=== PATIENT | female | born 2000 ===

== ENCOUNTER 2020-12-17 16:33 | Emergency (ER) | payer OTHER ==
[2020-12-17 18:54] VITALS: BP 124/78
--- NOTE | 2020-12-17 21:08 | Emergency Department Report ---
ED General Adult HPI - General Chief complaint: Pain General Stated complaint: BREAST PAINS PUI?: No Source: patient Mode of arrival: Ambulatory Limitations: No Limitations - History of Present Illness Initial comments: Patient is a A0 20-year-old female with no past medical history who presents to the ED with acute onset persistent left breast pain for the last 1 week. Patient states that she is currently breast-feeding her baby and that the pain has been intermittent and worse especially with palpation of left breast or when she makes any movement. Patient states that in the last 2 days, she has not been able to sleep because of worsening pain. Patient denies dizziness, syncope, nausea and vomiting, shortness of breath, chest pain, palpitations, fever and chills, abdominal pain, traumatic injury, fall, heavy lifting or neck pain, sore throat and headache. MD Complaint: left breast pain, lactating -: Sudden, week(s) (1) Location: chest (left breast) Radiation: non-radiation Severity scale (0 -10): 7 Quality: aching, sharp Consistency: intermittent Improves with: none Worsens with: movement Associated Symptoms: denies other symptoms. denies: confusion, chest pain, cough, diaphoresis, fever/chills, headaches, loss of appetite, malaise, nausea/vomiting, rash, seizure, shortness of breath, syncope, weakness Treatments Prior to Arrival: none - Related Data Previous Rx's Medication Instructions Recorded Last Taken Type Ibuprofen [Motrin] 800 mg PO Q8HR PRN #30 tablet 12/17/20 Unknown Rx cephALEXin [Keflex] 500 mg PO Q8HR #30 cap 12/17/20 Unknown Rx Allergies Allergy/AdvReac Type Severity Reaction Status Date / Time No Known Allergies Allergy Unverified 12/17/20 18:50 ED Review of Systems ROS: Stated complaint: BREAST PAINS Other details as noted in HPI Constitutional: denies: chills, fever Eyes: denies: eye pain, eye discharge, vision change ENT: denies: ear pain, throat pain Respiratory: denies: cough, shortness of breath, wheezing Cardiovascular: other (Left breast pain). denies: chest pain, palpitations Endocrine: no symptoms reported Gastrointestinal: denies: abdominal pain, nausea, diarrhea Genitourinary: denies: urgency, dysuria, discharge Musculoskeletal: denies: back pain, joint swelling, arthralgia Skin: denies: rash, lesions Neurological: denies: headache, weakness, paresthesias Psychiatric: denies: anxiety, depression Hematological/Lymphatic: denies: easy bleeding, easy bruising ED Past Medical Hx - Past Medical History Previous Medical History?: No - Surgical History Past Surgical History?: No - Medications Home Medications: Home Medications Medication Instructions Recorded Confirmed Last Taken Type Ibuprofen [Motrin] 800 mg PO Q8HR PRN #30 tablet 12/17/20 Unknown Rx cephALEXin [Keflex] 500 mg PO Q8HR #30 cap 12/17/20 Unknown Rx ED Physical Exam - General Limitations: No Limitations General appearance: alert, in no apparent distress - Head Head exam: Present: atraumatic, normocephalic, normal inspection - Eye Eye exam: Present: normal appearance, PERRL, EOMI Pupils: Present: normal accommodation - ENT ENT exam: Present: normal exam, normal orophraynx, mucous membranes moist, TM's normal bilaterally, normal external ear exam - Neck Neck exam: Present: normal inspection, full ROM - Respiratory Respiratory exam: Present: normal lung sounds bilaterally, chest wall tenderness (Palpable left breast tenderness due to palpable left breast cysts. No erythema or swelling). Absent: respiratory distress, wheezes, rales, rhonchi, accessory muscle use, decreased breath sounds, prolonged expiratory - Cardiovascular Cardiovascular Exam: Present: regular rate, normal rhythm, normal heart sounds. Absent: systolic murmur, diastolic murmur, rubs, gallop - GI/Abdominal GI/Abdominal exam: Present: soft, normal bowel sounds. Absent: tenderness, guarding, rebound, hyperactive bowel sounds, hypoactive bowel sounds, organomegaly - Extremities Exam Extremities exam: Present: normal inspection, full ROM, normal capillary refill - Back Exam Back exam: Present: normal inspection, full ROM. Absent: tenderness, CVA tenderness (R), CVA tenderness (L), muscle spasm, paraspinal tenderness, vertebral tenderness, rash noted - Neurological Exam Neurological exam: Present: alert, oriented X3, CN II-XII intact, normal gait, reflexes normal - Psychiatric Psychiatric exam: Present: normal affect, normal mood - Skin Skin exam: Present: warm, dry, intact, normal color. Absent: rash ED Course Vital Signs 12/17/20 18:52 Temperature 98.8 F Pulse Rate 76 Respiratory 18 Rate Blood Pressure 124/78 O2 Sat by Pulse 98 Oximetry ED Medical Decision Making - Medical Decision Making This is a A0 20-year-old female with no past medical history who presents to the ED with acute onset persistent left breast pain for the last 1 week. Patient states that she is currently breast-feeding her baby and that the pain has been intermittent and worse especially with palpation of left breast or when she makes any movement. Patient states that in the last 2 days, she has not been able to sleep because of worsening pain. In the ED, patient is alert and oriented x3 and is not in any distress with normal vital signs. Patient was discharged home on medications based on the history and physical exam findings. Patient is currently lactating and based on her symptoms, patient may be developing acute mastitis or fibrocystic breast disease causing her symptoms. Patient was therefore discharged home on pain medications and antibiotics and advised to follow-up with her [employer] physician or primary care physician in 7 to 10 days for reevaluation. Patient was advised to return to the ED immediately if symptoms get worse. - Differential Diagnosis Mastitis; fibrocystic breast disease; cellulitis Critical care attestation.: If time is entered above; I have spent that time in minutes in the direct care of this critically ill patient, excluding procedure time. ED Disposition Clinical Impression: Pain of left breast, Acute mastitis of left breast Fibrocystic breast disease (FCBD) in female Qualifiers: Laterality: left Qualified Code(s): N60.12 - Diffuse cystic mastopathy of left breast Disposition: 01 HOME / SELF CARE / HOMELESS Is pt being admited?: No Does the pt Need Aspirin: No Condition: Stable Instructions: Fibrocystic Breast Changes, [id number], Mastitis, [id number], Breast Self-Awareness, [id number] Additional Instructions: Todos los resultados de las pruebas de laboratorio fueron revisados ??y no son factibles. Es probable que angel sntomas se deban a bradford sospecha de infeccin en fernandez seno debido a fernandez lactancia y tambin probablemente a cambios fibroqusticos en los senos que pueden causar dolor elfego, especialmente en bradford madre lactante. Por lo tanto, tome los medicamentos con alimentos, carlos muchos lquidos y josi un seguimiento con el mdico de atencin primaria o el mdico obstetra / gineclogo en 7 a 10 krishnamurthy para bradford reevaluacin o regrese al servicio de urgencias de inmediato si los sntomas empeoran. Prescriptions: cephALEXin [Keflex] 500 mg PO Q8HR #30 cap Ibuprofen [Motrin] 800 mg PO Q8HR PRN #30 tablet PRN Reason: Pain , Severe (7-10) Referrals: [facility] [Provider Group] - 3-5 Days Time of Disposition: 21:06 Print Language: [place]
== END 2020-12-17 22:33 | disposition home or self-care (01) ==
LOC: ED 16:33
DX: N61.0 Mastitis without abscess (principal); N60.12 Diffuse cystic mastopathy of left breast; Z79.899 Other long term (current) drug therapy
CPT/HCPCS: 99282

== ENCOUNTER 2021-07-26 05:57 | Emergency (ER) | payer SELFPAY ==
[2021-07-26 06:23] VITALS: BP 137/65
[2021-07-26] MEDS ORDERED: KETOROLAC 10 MG TAB PO ONE (07:06)
[2021-07-26] MEDS ORDERED: DEXAMETHASONE 4 MG TAB PO ONE (07:06)
--- NOTE | 2021-07-26 07:11 | Emergency Department Report ---
ED ENT HPI - General Chief complaint: Earache Stated complaint: EARACHE (RT EAR) Time Seen by Provider: 07/26/21 06:53 Source: patient Mode of arrival: Ambulatory Limitations: No Limitations - History of Present Illness Initial comments: 20-year-old female presents to the emergency department for evaluation of 1 day history of right earache, sore throat, and headache. She denies fever and drainage from ear. She states that pain is 10 out of 10, and ear is painful to touch. MD complaint: sore throat, ear pain -: Gradual, days(s) Location: R ear (1), throat Severity: severe Severity scale (0 -10): 10 Quality: aching Consistency: constant Associated Symptoms: cough, sore throat, rhinorrhea. denies: fever, gum swelling, toothache, pain with swallowing, tinnitus, hearing loss, discharge from ear - Related Data Previous Rx's Medication Instructions Recorded Last Taken Type Ibuprofen [Motrin] 800 mg PO Q8HR PRN #30 tablet 12/17/20 Unknown Rx cephALEXin [Keflex] 500 mg PO Q8HR #30 cap 12/17/20 Unknown Rx Cetirizine HCl [ZyrTEC 10mg cap] 10 mg PO DAILY #30 cap 07/26/21 Unknown Rx Neomy/Polymyx B/Hc (Otic) Soln 4 drops RTEAR TID #1 bottle 07/26/21 Unknown Rx [Cortisporin (Otic) Soln] Allergies Allergy/AdvReac Type Severity Reaction Status Date / Time No Known Allergies Allergy Unverified 12/17/20 18:50 ED Dental HPI - General Chief complaint: Earache Stated complaint: EARACHE (RT EAR) Time Seen by Provider: 07/26/21 06:53 Source: patient Mode of arrival: Ambulatory Limitations: No Limitations - Related Data Previous Rx's Medication Instructions Recorded Last Taken Type Ibuprofen [Motrin] 800 mg PO Q8HR PRN #30 tablet 12/17/20 Unknown Rx cephALEXin [Keflex] 500 mg PO Q8HR #30 cap 12/17/20 Unknown Rx Cetirizine HCl [ZyrTEC 10mg cap] 10 mg PO DAILY #30 cap 07/26/21 Unknown Rx Neomy/Polymyx B/Hc (Otic) Soln 4 drops RTEAR TID #1 bottle 07/26/21 Unknown Rx [Cortisporin (Otic) Soln] Allergies Allergy/AdvReac Type Severity Reaction Status Date / Time No Known Allergies Allergy Unverified 12/17/20 18:50 ED Review of Systems ROS: Stated complaint: EARACHE (RT EAR) Other details as noted in HPI Comment: All other systems reviewed and negative Constitutional: denies: chills, fever Eyes: denies: eye pain, eye discharge, vision change ENT: ear pain, throat pain, congestion. denies: dental pain, hearing loss, epistaxis Respiratory: cough. denies: shortness of breath, SOB with exertion, SOB at rest Cardiovascular: denies: chest pain, palpitations Endocrine: no symptoms reported Gastrointestinal: denies: abdominal pain, nausea, vomiting Genitourinary: denies: urgency, dysuria Musculoskeletal: denies: back pain Skin: denies: rash, lesions Neurological: headache. denies: weakness, numbness, paresthesias, confusion, abnormal gait, vertigo Psychiatric: denies: anxiety, depression Hematological/Lymphatic: denies: easy bleeding, easy bruising ED Past Medical Hx - Medications Home Medications: Home Medications Medication Instructions Recorded Confirmed Last Taken Type Ibuprofen [Motrin] 800 mg PO Q8HR PRN #30 tablet 12/17/20 Unknown Rx cephALEXin [Keflex] 500 mg PO Q8HR #30 cap 12/17/20 Unknown Rx Cetirizine HCl [ZyrTEC 10mg cap] 10 mg PO DAILY #30 cap 07/26/21 Unknown Rx Neomy/Polymyx B/Hc (Otic) Soln 4 drops RTEAR TID #1 bottle 07/26/21 Unknown Rx [Cortisporin (Otic) Soln] ED Physical Exam - General Limitations: No Limitations General appearance: alert, in no apparent distress - Head Head exam: Present: atraumatic, normocephalic - Eye Eye exam: Present: normal appearance. Absent: conjunctival injection - ENT ENT exam: Present: mucous membranes moist. Absent: normal exam (bilateral nasal mucosal edema and turbinate swelling, tenderness to palpation to frontal and maxillary sinus areas.), normal orophraynx (Erythema to posterior oropharynx) - Expanded ENT Exam Expanded TM/Canal exam: Erythema: Right TM, Canal Discharge: Right TM, Canal Tenderness: Right TM Mouth exam: Present: normal external inspection Teeth exam: Present: normal inspection Throat exam: Positive: tonsillar erythema. Negative: tonsillomegaly, tonsillar exudate, R peritonsillar mass, L peritonsillar mass - Neck Neck exam: Present: normal inspection. Absent: lymphadenopathy - Respiratory Respiratory exam: Present: normal lung sounds bilaterally. Absent: respiratory distress, wheezes, rales, rhonchi - Cardiovascular Cardiovascular Exam: Present: regular rate, normal heart sounds - GI/Abdominal GI/Abdominal exam: Present: soft. Absent: distended - Extremities Exam Extremities exam: Present: normal inspection - Back Exam Back exam: Present: normal inspection. Absent: CVA tenderness (R), CVA tenderness (L) - Neurological Exam Neurological exam: Present: alert, oriented X3, normal gait - Psychiatric Psychiatric exam: Present: normal affect, normal mood - Skin Skin exam: Present: warm, dry, intact, normal color ED Course Vital Signs 07/26/21 06:19 Temperature 98.6 F Pulse Rate 73 Respiratory 18 Rate Blood Pressure 137/65 [Right] O2 Sat by Pulse 97 Oximetry ED Medical Decision Making - Medical Decision Making 20-year-old female presents to the emergency department for evaluation of 1 day history of right earache, sore throat, and headache. She denies fever and drainage from ear. She states that pain is 10 out of 10, and ear is painful to touch. Exam consistent with otitis externa and sinusitis. Patient will be treated with one-time dose of steroids and discharged home on Cortisporin drops for ear and Zyrtec daily for sinusitis. She is advised to drink plenty of noncaffeinated fluids, take medicines as prescribed, and follow-up with primary care provider or ENT if no improvement or worsening symptoms. She verbalized understanding of and agreement with plan of care. Critical care attestation.: If time is entered above; I have spent that time in minutes in the direct care of this critically ill patient, excluding procedure time. ED Disposition Clinical Impression: Otitis externa Qualifiers: Otitis externa type: unspecified type Chronicity: acute Laterality: right Qualified Code(s): H60.501 - Unspecified acute noninfective otitis externa, right ear Sinusitis Qualifiers: Sinusitis location: frontal Chronicity: acute Recurrence: non-recurrent Qualified Code(s): J01.10 - Acute frontal sinusitis, unspecified Disposition: 01 HOME / SELF CARE / HOMELESS Is pt being admited?: No Does the pt Need Aspirin: No Condition: Stable Instructions: Ear Drops, Adult, [id number], Sinusitis, Adult, [id number], Sinus Headache, [id number], Otitis Externa, [id number] Additional Instructions: Take medications as prescribed. Drink plenty of noncaffeinated fluids. Follow- up with primary care provider or ear nose and throat doctor if no improvement or worsening symptoms. Return to the emergency department as needed. Prescriptions: Neomy/Polymyx B/Hc (Otic) Soln [Cortisporin (Otic) Soln] 4 drops RTEAR TID #1 bottle Cetirizine HCl [ZyrTEC 10mg cap] 10 mg PO DAILY #30 cap Referrals: KRUNAL DUDLEY MD [Referring] - 3-5 Days CORTES RODRÍGUEZ MD [Staff Physician] - 3-5 Days Time of Disposition: 07:18
== END 2021-07-26 08:20 | disposition home or self-care (01) ==
LOC: ED 05:57
DX: H60.91 Unspecified otitis externa, right ear (principal); J32.9 Chronic sinusitis, unspecified; Z79.899 Other long term (current) drug therapy
CPT/HCPCS: 99282; J8540